=== PATIENT | male | born 1980 | race Caucasian/White ===

== ENCOUNTER 2020-01-17 12:44 | Outpatient (RCR) | payer OTHER, SELFPAY ==
--- NOTE | 2020-01-26 08:09 | HP.FCE ---
Floor (Occasional 1-33% of Day): 35# Floor (Frequent 34-66% of Day): 18# Floor (Constant 67-100% of Day): 7# Floor PDL: Light-Medium Knee (Occasional 1-33% of Day): 40# Knee (Frequent 34-66% of Day): 20# Knee (Constant 67-100% of Day): NA Knee PDL: Light-Medium Waist (Occasional 1-33% of Day): 35# Waist (Frequent 34-66% of Day): 18# Waist (Constant 67-100% of Day): NA Waist PDL: Light-Medium Shoulder (Occasional 1-33% of Day): 35# Shoulder (Frequent 34-66% of Day): 18# Shoulder (Constant 67-100% of Day): NA Shoulder PDL: Light-Medium Overhead (Occasional 1-33% of Day): 20# Overhead (Frequent 34-66% of Day): 10# Overhead (Constant 67-100% of Day): NA Overhead PDL: Light Comments: Due to increase in pain pt is unable to perform lifting a a constant ability at this time. Bending: Frequent Ability (34-66% of day) Squatting: Frequent Ability (34-66% of day) Kneeling: Occasional Ability (1-33% of day) Comments: low occasional ability Reaching out: Frequent Ability (34-66% of day) Reaching up: Frequent Ability (34-66% of day) Sitting: Frequent Ability (34-66% of day) Walking: Frequent Ability (34-66% of day) Standing: Frequent Ability (34-66% of day) Duration Sedentary Sedentary Light Light Light Medium Medium Medium Heavy Very Heavy Heavy Occasional (0-33% of day) Frequent (34-66% of day) Constant (67-100% of day) 10 # Negligible Negligible 15 # 8 # Negligible 20 # 10# Negli. 35 # 18 # 7 # 50 # 25 # 10 # 75 # 100 # >100 # 38 # 50 # >50 # 15 # 20 # >20 # Height: 1.7 m Weight:: 99.79 kg Hand Dominance: left Medical History Including Restrictions: Pt states he was in good health until he fx his ribs in Apr 2019 left side and another rib contusion 2019. pt states he fractured them when he was sneezing after being sick and vomiting. pt has not been able to see ortho dr as they do not treat rib fractures. pt states he has been throughout 6-7 Physical therapy sessions but not pt states he is going to therapy 2x week for 30 min session. Pt states his therapy includes stretching and some resistive thera-band work. pt states he will continue with physical therapy. Pt states he was dx with fibromyalgia 10-12 years ago. pt states he takes medication: Lyrica, Cymbalta, tramadol, medical cannabis- pt states he does not have lifting restriction. pt states he does not exercise on a regular basis, pt vapes nicotine. pt states he will have a bone density scan to see why his ribs fx with sneezing but not sure when that is scheduled. family doctor has also ordered blood work to try to figure out cause of rib fracture. pt states he does get trigger point injection in his neck for Fibromyalgia - pts pain mtg in [id number] Diagnoses: contusion of right rib Nov. fx of left rib Apr. high blood pressure. GERD. Hyperlipidemia. chronic back pain. depressive disorder. hx of smokeless tobacco quit 2018 currently Vapes nicotine Symptoms: right side rib pain Pain: pt reports pain on right side 2-06/20 no pain medication at this time. Work History: Pt states he works at [employer] and has worked there for 9 years. 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 pt states he would work 40 hours or more a week. 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 pt states his job included constant standing, walking, lifting, twisting and a lift requirement of 50#. Due to pts injury pt is on short term disability as his employer does not offer light duty. pt states his dr. does not have a return to work date. Behavioral: Pt was cooperative during assessment. put in good effort to perform requested tasks. ADLS: Pt states he lives with his and son (age 17) in a two-story home with three entry steps no rail. pt states he is bedroom and bathroom are on first floor set-up once his is in the home. pt states he does go to the basement occasionally- 15 steps to basement no handrail. pt states he has a tub/shower combo. pt states he is ind. with bathing/dressing. pt states he drives ind. pt states does cooking, cleaning. pt states him and his do laundry together. Pt states does the grocery shopping. pt states does not work outside of the home. pt states son does the yard work (prior to injury son was doing yard work). Physical Examination: heart rate 89 ROM: pt demo with limited lateral bend right and left due to increase pain 4/10 with motion. bilateral UB ROM is WNL. bilateral LE ROM is WNL Strength: UB 4-/5. LB 4+/5 Right Veterans Adviser Strength Average: 93.33 Right Veterans Adviser Strength Percentile: 14% Left Veterans Adviser Strength Average: 96.66 Left Veterans Adviser Strength Percentile: 17% Right Lateral Pinch Average: 20.66 Right Lateral Pinch Percentile: 50% Left Lateral Pinch Average: 21.33 Left Lateral Pinch Percentile: 50% Right Tripod Pinch Average: 20.00 Right Tripod Pinch Percentile: 50% Left Tripod Pinch Average: 20.00 Left Tripod Pinch Percentile: 50% Sensation: denies Fine Motor: 9-hole peg test for fine motor. left 19.46 sec. 75%. right 18.82 sec. 75% Balance: no loss of balance noted during assessment Bending: pt demo the ability to bend forward three times, ten times and ten times rapidly pt HR was 132. pt reported right side pain 3-4/10, right side feels tight. Pt c/o legs feel weak.pt can bend forward on a frequent ability Squatting: pt demo the ability the squat three times, ten times pt HR 123, pt states rib pain 3/10. pt needed rest period, pt attempted 10x rapidly but was only able to get through 5/10 heart rate jumped to 135. pt SOB and fatigued from task. bilateral quads sore pt can squat on a frequent ability. Kneeling: pt demo the ability to kneel three times- pt legs shaking and pt states feeling weak- heart rate 132. pt can kneel on a low occasional ability Reaching out/up: pt demo the ability to reach up/out three times, ten times and ten times rapidly pt c/o right sided pain with motion 3/10 heart rate 105 pt can reach up/out on a frequent ability Walking: pt ambulated 18 min with an antalgic gait pattern Heart rate 122. Pt reported pain 3/10. pt can ambulate on a frequent ability. Standing: pt demo the ability to stand for 7 min shifting his body weight around. Pt stated little change in pain with standing. PT can stand frequent ability Sitting: pt demo the ability to sit for 40 min with no apparent or expressed discomfort, pt can sit on a frequent ability Climbing Stairs: pt demo the ability to ascend /descend 10 steps with use of handrails and a reciprocal step pattern and good ability. Floor Lift: PT demo the ability to left 35# maximally from this level. Knee Lift: PT demo the ability to left 40# maximally from this level. Waist Lift: PT demo the ability to left 35# maximally from this level. Shoulder Lift: PT demo the ability to left 35# maximally from this level. Overhead Lift: PT demo the ability to left 20# maximally from this level. Carrying: pt demo the ability to carry 25# for 40 feet. pt did have pain with this task. Comments: pain is limiting factor with pts performance.
--- NOTE | 2020-01-26 08:09 | HP.OT.NRP ---
GARO OCAMPO was seen in my office for initial evaluation on . The following Plan of Care was established for this patient: This patient was last seen in our office . Pertinent comments regarding their Occupational therapy will appear below: pt was seen for FCE only At this point I will be discontinuing this patient from occupational therapy. I would be happy to see this patient again in the future if found appropriate by the physician. Thank you! Magdalena Deras, OTR/L, CHT
== END 2020-01-17 19:00 | disposition home or self-care (01) ==
LOC: OT 12:44
DX: R07.81 Pleurodynia (principal); T14.8XXD Other injury of unspecified body region, subsequent encounter
CPT/HCPCS: 97750